=== PATIENT | male | born 1980 | race Caucasian/White ===

== ENCOUNTER 2020-01-30 18:40 | Emergency (ER) | payer BC, SELFPAY ==
--- NOTE | ~2020-01-30 | XR_ITS ---
EXAMINATION: XR chest 2V EXAM DATE: 01/30/2020 19:50 INDICATION: Left-sided chest pain for 3 days, shortness of breath, numbness in both arms. Dizziness . TECHNIQUE: Frontal and lateral projections of the chest obtained and reviewed. There is no prior john dy for comparison. FINDINGS: The lungs are clear. There are no pleural effusions. The cardiomediastinal silhouette is within normal limits. There is no pneumothorax suspected. The bones and soft tissues are unremarkab le. IMPRESSION: Unremarkable chest x-ray exam. Reviewed, dictated and finalized at location A.
--- NOTE | ~2020-01-30 | CT_ITS ---
EXAMINATION: CTA chest PE protocol EXAM DATE: 01/30/2020 21:45 INDICATION: Shortness of breath and left-sided chest pain. Numbness in both arms. TECHNIQUE: Spiral CTA of the chest (pulmonary arteries) was performed with 100 cc Omnipaque 350 intr avenous contrast injection. Images were acquired during the pulmonary arterial phase. Coronal maxi mum intensity projection 3D-reconstructions were created by the technologist on dedicated workstation . Axial, coronal and sagittal reformatted images were reviewed. The dose-length product (DLP) for t his examination was 1190.59 mGy-cm. The exposure was tailored according to patient size (auto mA ex posure control), and iterative reconstruction (ASIR) was used as additional dose reduction technique. There is no prior study for comparison. FINDINGS: Pulmonary arteries are well opacified and without intraluminal filling defects. No thora cic aortic dissection. The lungs are clear. There are no pleural or pericardial effusions. Trach eobronchial tree is patent. There is no mediastinal, hilar or axillary lymphadenopathy. There is no pneumothorax. Heart normal in size. Transverse colonic diverticulosis. There is thoracic spon dylosis without osteoblastic or osteolytic lesions identified. IMPRESSION: 1. No pulmonary emboli or acute thoracic findings. 2. Transverse colonic diverticulosis. Reviewed, dictated and finalized at location A.
--- NOTE | 2020-01-30 18:45 | ECG_ITS ---
Measurements Intervals [place] Rate: 103 P: 24 CA: 159 QRS: 31 QRSD: 85 T: 55 QT: 323 QTc: 423 Interpretive Statements SINUS TACHYCARDIA DELAYED PRECORDIAL R/S TRANSITION BORDERLINE ECG Electronically Signed On 01-30-2020 18:59:53 CDT by Juan Carlos Lo D.O.
[2020-01-30 18:49] VITALS: BP 163/110; PULSE 106; RESP 18; TEMP 36.6; O2SAT 99
[2020-01-30 18:57] LABS: Basophils Absolute Auto 0.1 K/mm3 (0.0-0.1); Basophils Percent Auto 0.7 % (0.2-1.2); Eosinophils Absolute Auto 0.3 K/mm3 (0-0.3); Eosinophils Percent Auto 2.1 % (0-4.4); Hematocrit 48.5 % (42.0-52.0); Hemoglobin 16.8 g/dL (14.0-18.0); Immature Granulocyte Absolute 0.13 K/mm3 (0.00-0.031); Lymphocytes Absolute Auto 3.43 K/mm3 (0.9-3.2); Lymphocytes Percent Auto 25.3 % (18.3-44.2); Mean Corpuscular HGB Conc 34.6 g/dl (32-36); Mean Corpuscular Hemoglobin 31.3 pg (26-34); Mean Corpuscular Volume 90.5 fl (80-100); Mean Platelet Volume 11.1 fl (7.4-10.4); Monocytes Absolute Auto 1.1 K/mm3 (0.1-0.6); Monocytes Percent Auto 7.7 % (2.6-8.5); Neutrophils Absolute Auto 8.6 K/mm3 (1.3-6.7); Neutrophils Percent Auto 63.2 % (45.5-73.1); Platelet Count Result 213 k/mm3 (150-375); Red Blood Count 5.36 M/mm3 (4.6-6.20); Red Cell Distribution Width 13.6 % (11.5-14.5); White Blood Count 13.6 K/mm3 (4.5-10.0)
[2020-01-30 19:09] LABS: Blood Urea Nitrogen 16 mg/dL (9-20); Calcium 9.7 mg/dL (8.4-10.2); Carbon Dioxide 26 mmol/L (22-30); Chloride 102 mmol/L (98-107); Estimated CRCL calculation 135 ml/min; Estimated Glomerular Filt Rate > 60; Glucose 119 mg/dL (75-110); Sodium 136 mmol/L (137-145)
[2020-01-30 19:17] LABS: INR 1.1; Prothrombin Time 13.5 Seconds (11.1-14.7)
[2020-01-30 19:22] LABS: Troponin I < 0.012 ng/mL (0.000-0.034)
[2020-01-30] MEDS: ASPIRIN 81 MG CHEWABLE TABLET 324 MG PO (20:55)
--- NOTE | 2020-01-30 20:56 | ED.CHESTPAIN ---
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 The chest pain was left chest and 8 out of 10. He pulled over and it resolved. He checked his blood sugar and it was normal. He called his outpatient nurse and she confirmed it was not a blood sugar problem. He resumed driving. Then his hands went numb and he had bilateral shoulder pain. He decided to come into the hospital and get it checked out. He has no known heart disease. He has type 2 diabetes. He is overweight. He smokes a pack a day on cigarette. He rarely drinks alcohol. He does not do marijuana. Surgeries include umbilical hernia repair, and left shoulder surgery. He has not been sick recently. MD complaint: chest pain Onset (ago): hour(s) Timing of current episode: episodic Prior episodes: No Onset: during rest Pain location: left chest Pain radiation: none Severity: moderate Quality: sharp Relieving factors: rest Exacerbating factors: nothing Context: recent immobilization Associated symptoms: dyspnea Treatment prior to arrival: none Risk Factors Coronary artery disease risk factors: diabetes, smoking history and hypertension Thoracic aortic dissection risk factors: longstanding hypertension Pulmonary embolism risk factors: morbid obesity Related Data Home Medications Medication Instructions Recorded Confirmed allopurinol 300 mg PO DAILY 01/30/20 bupropion HCl mg PO 01/30/20 colchicine [Mitigare] 0.6 mg PO DAILY 01/30/20 glipizide-metformin 1 tablet PO BID 01/30/20 lisinopril 10 mg PO DAILY 01/30/20 omeprazole 10 mg PO DAILY 01/30/20 Allergies Allergy/AdvReac Type Severity Reaction Status Date / Time No Known Allergies Allergy Verified 01/30/20 20:54 Review of Systems Review of Systems: Narrative: CONSTITUTIONAL: Denies fever, chills, or sweats. EYES: Denies visual changes, redness, or discharge. ENT: Denies rhinorrhea, congestion, sore throat, or otalgia. CARDIOVASCULAR: He has chest pain, but not palpitations, or edema. RESPIRATORY: Denies cough, but has dyspnea. GASTROINTESTINAL: Denies abdominal pain, nausea, vomiting, or diarrhea. GENITOURINARY: Denies dysuria or hematuria. SKIN: Denies rash or itching. MUSCULOSKELETAL: Denies back pain, joint pain, or myalgia. NEUROLOGIC: Denies headache, numbness, or weakness. PSYCHIATRIC: Denies anxiety or depression. All systems reviewed & are unremarkable except as noted in HPI and below PMFSH Past Medical History Medical History (Updated 01/31/20 @ 00:00 by Guadalupe Mathur) Hypertension Morbid obesity Type 2 diabetes mellitus Surgical History Surgical History (Updated 01/30/20 @ 21:01 by Breanna Tyson MD) History of shoulder surgery History of umbilical hernia repair Social History Social History (Updated 01/30/20 @ 21:01 by Breanna Tyson MD) Smoking status: Current every day smoker Tobacco type: cigarettes Alcohol intake: current Alcohol use details: Rarely Exam Narrative: Exam Narrative: GENERAL: Well-appearing, well-nourished, and in no acute distress. Morbid obesity, frequent sighing. HEAD: Normocephalic, atraumatic. EYES: PERRLA and EOMI. ENT: Nares clear, no rhinorrhea or epistaxis. Mucous membranes moist. NECK: Supple. CHEST: Clear to auscultation. No respiratory distress. HEART: Regular rate and rhythm. No murmur heard. Normal peripheral pulses. ABDOMEN: Soft, nontender, nondistended, normal active bowel sounds. EXTREMITIES: Normal range of motion. No edema. SKIN: Warm, dry, no rash. NEURO: No focal deficits. Alert and oriented x3. PSYCH: Normal mood and affect. Const: General: no acute distress and alert Orientation/consciousness: patient oriented x3 Course Vital Signs Vital signs: Vital Signs Temperature 97.8 F 08/
[2020-01-30 21:00] VITALS: BP 134/94; PULSE 99; RESP 18; O2SAT 97
[2020-01-30 22:36] LABS: Troponin I < 0.012 ng/mL (0.000-0.034)
[2020-01-30 23:21] VITALS: BP 111/75; PULSE 96; RESP 18; O2SAT 94
== END 2020-01-30 23:22 | disposition home or self-care (01) ==
PROVIDERS: Emergency Medicine; Emergency Provider Emergency Medicine
DX: I10 Essential (primary) hypertension (principal); E11.9 Type 2 diabetes mellitus without complications; Z79.84 Long term (current) use of oral hypoglycemic drugs; F17.210 Nicotine dependence, cigarettes, uncomplicated; E66.01 Morbid (severe) obesity due to excess calories; Z68.42 Body mass index [BMI] 45.0-49.9, adult
CPT/HCPCS: 36415; 71046; 71275; 80048; 84484; 85025; 85610; 85730; 93005; 99284; A9270; Q9967